=== PATIENT | female | born 1960 | race Caucasian/White ===

== ENCOUNTER 2020-03-25 10:41 | Emergency (ER) | payer OTHER ==
--- NOTE | 2020-03-25 11:17 | TELE ---
HPI Do you have fever,cough or shortness of breath?: Yes - General Reason For Visit: COIVD 19 TEST History Source: Patient Exam Limitations: No Limitations - History of Present Illness 03/25/20 11:22 Patient is a 59-year-old female who participated in a virtual urgent care visit requesting COVID testing. She states she had a group of people at her house 3 days ago, and yesterday began to have body aches and chills. She states she has not had a fever. This morning she woke up with a sore throat. She has been feeling some nausea. She denies any cough. She does admit to having a minimal amount of shortness of breath. She denies any recent travel outside of the within the last 30 days or outside [facility] within the last 15. She denies any past medical history or allergies to medications. She does admit to having a total hip replacement about 1 month ago. Of note: This telehealth visit was done via audio only as the video portion of the exam was not functioning. Past History - Medical History Allergies/Adverse Reactions: Allergies Allergy/AdvReac Type Severity Reaction Status Date / Time No Known Allergies Allergy Unverified 10/27/15 12:45 Home Medications: Ambulatory Orders Ibuprofen [Motrin -] 600 mg PO DAILY 10/27/15 Methocarbamol [Robaxin -] 500 mg PO TID PRN #20 tablet 10/27/15 Naproxen [Naprosyn -] 500 mg PO BID PRN #14 tablet 10/27/15 Oxycodone HCl/Acetaminophen [Percocet 5-325 mg Tablet -] 1 tab PO Q6H PRN #10 tablet MDD 4 10/27/15 GI Disorders: Yes (IBS) - Psycho-Social/Smoking History Smoking Status: No Smoking History: Never smoked Number of Cigarettes Smoked Daily: 0 Review of Systems - Review of Systems Comments:: 03/25/20 11:23 - Review of Systems Able to Perform ROS?: Yes Constitutional: No: Fever, Chills, Loss of Appetite, Night Sweats, Weakness; positive: Body aches, cover testing requested HEENTM: No: Eye Pain, Vision changes, Ear Pain, Throat Swelling, Mouth Pain, Difficulty Swallowing; positive: Sore throat Respiratory: No: Cough, Shortness of Breath, Wheezing, Sputum Production Cardiac (ROS): No: Chest Pain, Chest Tightness, Palpitations, Irregular Heart Beat, Edema ABD/GI: No: Vomiting, Abdominal Pain, Diarrhea; positive: Nausea : No Dysuria, No Hematuria, No Frequency, No Urgency, No Vaginal Discharge/Pain, No Penile Discharge/Pain Musculoskeletal: No: Muscle Pain, Back Pain, Joint Pain, Muscle Weakness, Neck Pain Integumentary: No: Lesions, Rash Neurological: No: Headache, Numbness, Tingling, Weakness, Speech Difficulties *Physical Exam - Physical Exam 03/25/20 11:24 - Physical Exam HEENT: Normal Voice, Hearing Grossly Normal Respiratory/Chest: Speaking full sentences Neurologic: Fully Oriented, Alert, Normal Mood/Affect, Normal Response - Medical Decision Making 03/25/20 11:05 Assessment: Patient is a 59-year-old female with body aches, nausea, sore throat since yesterday and would like to be tested for COVID. Plan: -COVID swab ordered -COVID counseling given, isolation precautions reviewed -Patient advised to quarantine until she gets the results of her COVID testing -She has been made aware that she can proceed to the [facility] for her COVID swab -She understands and agrees with this treatment plan Discharge Diagnosis at time of Disposition: Body aches, Sore throat, Nausea, Counseled about COVID-19 virus infection - Referrals Follow-up Referral(s): Thomas Jesus MD [Primary Care Provider] - - Patient Instructions Discharge Instructions: [facility]-Coronavirus Instructions, [facility] COVID-19 Isolation Protocol Additional Discharge Instructions: You were seen via a telehealth visit and tested for COVID today. You should follow isolation precautions as per [facility] guidelines. Thank you for participating in our telehealth medicine program. If you have any worsening symptoms such as high fever, shaking chills, profuse vomiting or any other worsening symptoms you should go to your local emergency department immediately or follow up with your primary care doctor immediately. For symptoms: Take Tylenol 650 mg every 6 hours as needed for fever or pain. You may take Robitussin or other [id number] cough syrup. Follow the dosing instructions on the bottle. Warm tea, honey, and salt water gargles may help your symptoms. Please take precautions and self quarantine for 2 weeks and follow-up with your primary care doctor and the Department of Health. Return to the nearest emergency department for shortness of breath, difficulty breathing, chest pain, or if you have any changes in your symptoms. - Discharge Disposition: HOME Condition at time of Disposition: Stable
== END 2020-03-25 11:24 | disposition home or self-care (01) ==
LOC: JVIRT 10:41
DX: Z11.59 Encounter for screening for other viral diseases (principal)
CPT/HCPCS: Q3014-GT; U0003

== ENCOUNTER → 2020-12-18 | Day surgery (SDC) | payer OTHER | END | disposition home or self-care (01) | LOC: FMAMMOTONE 11:46 | PROVIDERS: ATTEND Nurse Practitioner Family | PROC: 0HBT3ZX Excision of Right Breast, Percutaneous Approach, Diagnostic (ICD-10-PCS; principal; 2020-12-18) | DX: N60.31 Fibrosclerosis of right breast (principal); N64.89 Other specified disorders of breast; R92.8 Other abnormal and inconclusive findings on diagnostic imaging of breast | CPT/HCPCS: 19081; 76098-TC-FY; 87899; 88305-TC; A4648 ==

== ENCOUNTER 2022-02-01 11:44 | Emergency (ER) | payer OTHER ==
[2022-02-01 11:52] VITALS: BP 133/81; PULSE 70; RESP 18; TEMP 97.6; BMI 22.8
[2022-02-01 12:53] LABS: HEMATOCRIT 40.2 % (32.4-45.2); HEMOGLOBIN 13.7 G/dL (10.7-15.3); MCH 29.8 pg (25.7-33.7); MCHC 34.2 g/dl (32.0-36.0); MEAN CELL VOLUME 87.3 fl (80-96); MEAN PLT VOLUME 8.6 fl (7.5-11.1); PLATELET COUNT 189.6 10^3/uL (134-434); RDW 15.1 % (11.6-15.6); WHITE BLOOD COUNT 7.7 10^3/uL (4.0-10.8)
[2022-02-01 13:12] LABS: ALBUMIN 3.6 g/dl (3.4-5.0); BILIRUBIN,TOTAL 0.6 mg/dl (0.2-1); CALCIUM 9.2 mg/dl (8.5-10); CREATININE 1.1 mg/dl (0.55-1.3); TOT PROT 6.4 g/dl (6.4-8.2)
== END 2022-02-01 15:15 | disposition home or self-care (01) ==
LOC: FER 11:44
DX: J34.1 Cyst and mucocele of nose and nasal sinus (principal); L03.211 Cellulitis of face
CPT/HCPCS: 0241U-QW; 36415; 70470-TC; 70487-TC; 80053; 85025; 99284-25; Q9967